=== PATIENT | male | born 1980 | race Two or more races ===

== ENCOUNTER 2019-02-26 14:32 | Emergency (ER) | payer OTHER ==
[~2019-02-26] VITALS: Ht 177.8 cm; Wt 74.8 kg
[2019-02-26 16:02] LABS: Basophils # (auto) 0.1 uL; Basophils % (auto) 1.1 % (0.0-2.0); Eosinophils # (auto) 0 uL; Hemoglobin 14.9 g/dL (13.5-17.5); Lymphocytes # (auto) 0.8 uL; Monocytes # (auto) 0.5 uL
[2019-02-26 16:07] LABS: Eosinophils % (auto) 0.1 % (0.0-7.0); Hematocrit 42.9 % (41.0-53.0); Lymphocytes % (auto) 9.8 % (10.0-50.0); Mean Corpuscular Hgb Conc. 34.9 g/dL (32.0-36.0); Mean Corpuscular Volume 100.5 fL (80.0-100.0); Monocytes % (auto) 6.1 % (0.0-12.0); Neutrophils # (auto) 6.9 uL; Neutrophils % (auto) 82.9 % (37.0-80.0); Nucleated Red Blood Cells % 0.2 %; Platelet Count (auto) 78 10^3/uL (140-450); Red Blood Cells 4.27 10^6/uL (4.5-5.90); Red Cell Distribution Width 16.3 % (11.8-14.3); White Blood Cell 8.3 10^3/uL (4.4-10.8)
[2019-02-26 16:09] LABS: Albumin 3.9 g/dL (3.4-5.0); Calcium 8.5 mg/dL (8.5-10.1); Potassium 3.9 mmol/L (3.5-5.1)
[2019-02-26 16:13] LABS: BUN/Creatinine Ratio 5.6; Bilirubin, Total 2.8 mg/dL (0.2-1.0); Total Protein 8.5 g/dL (6.4-8.2)
[2019-02-26 16:14] LABS: Amphetamine Screen, Urine NEGATIVE (NEGATIVE); Barbiturate Scree,Urine NEGATIVE (NEGATIVE); Benzodiazephine Screen, Urine NEGATIVE (NEGATIVE); Cannabinoid Screen, Urine POSITIVE (NEGATIVE); Cocaine Screen, Urine NEGATIVE (NEGATIVE); Opiate Scree,Urine NEGATIVE (NEGATIVE); Phencyclidine Screen, Urine NEGATIVE (NEGATIVE)
[2019-02-26] MEDS ORDERED: SODIUM CHLORIDE 0.9% 1,000 ML IV ONE ×2 (19:00)
[2019-02-26] MEDS ORDERED: THIAMINE INJ 100 MG in SODIUM CHLORIDE 0.9% 1,000 ML IV ONE (19:00)
[2019-02-26 19:03] LABS: Urine WBC None Seen /hpf (0 - 3)
[2019-02-26 19:23] LABS: Urine Bacteria NONE SEEN /hpf (None Seen); Urine Blood Negative /uL (Negative); Urine Mucus FEW (None Seen); Urine Specific Gravity 1.019 (1.001-1.035)
[2019-02-26] MEDS ORDERED: LORazepam 2MG/ML-1ML VIAL IV ONE (19:45)
[2019-02-26 19:52] LABS: Magnesium 1.6 mg/dL (1.6-2.6)
[2019-02-26 20:07] LABS: Acetaminophen < 2.0 ug/mL (10-30); Salicylate < 0.2 mg/dL (2.8-20.0)
[2019-02-26] MEDS ORDERED: THIAMINE 100mg/ml INJ (200mg/2ml VIAL) ONE (20:14)
[2019-02-26 20:41] VITALS: BP 109/59
[2019-02-26] MEDS ORDERED: ALPRAZolam 0.5 MG TAB PO ONE (21:00)
== END 2019-02-26 21:33 | disposition home or self-care (01) ==
LOC: ER 14:35
DX: F10.231 Alcohol dependence with withdrawal delirium (principal); Y90.9 Presence of alcohol in blood, level not specified; K70.30 Alcoholic cirrhosis of liver without ascites; F32.9 Major depressive disorder, single episode, unspecified; F12.10 Cannabis abuse, uncomplicated
CPT/HCPCS: 36415; 80053; 80307; 80320; 80329; 81001; 83735; 85025; 96365; 96375; 99284; J2060; J3411; J7030

== ENCOUNTER 2019-03-29 14:38 | Emergency (ER) | payer OTHER ==
[~2019-03-29] VITALS: Ht 175.3 cm; Wt 65.8 kg
[2019-03-29 15:28] LABS: Albumin 3.6 g/dL (3.4-5.0); Anion Gap 7 (5-15); Blood Urea Nitrogen 12 mg/dL (7-18); Calcium 8.6 mg/dL (8.5-10.1); Carbon Dioxide 27 mmol/L (21-32); Chloride 105 mmol/L (98-107); Glucose 87 mg/dL (74-106); Potassium 3.9 mmol/L (3.5-5.1); Sodium 139 mmol/L (136-145)
[2019-03-29 15:30] LABS: Basophils # (auto) 0.1 uL; Eosinophils # (auto) 0.1 uL; Lymphocytes # (auto) 1.2 uL; Monocytes # (auto) 0.6 uL; Red Blood Cells 3.74 10^6/uL (4.5-5.90); Red Cell Distribution Width 15.3 % (11.8-14.3); White Blood Cell 6.8 10^3/uL (4.4-10.8)
[2019-03-29 15:32] LABS: Basophils % (auto) 1.3 % (0.0-2.0); Hematocrit 36.7 % (41.0-53.0); Hemoglobin 12.7 g/dL (13.5-17.5); Lymphocytes % (auto) 18.4 % (10.0-50.0); Mean Corpuscular Hgb Conc. 34.7 g/dL (32.0-36.0); Mean Corpuscular Volume 98.2 fL (80.0-100.0); Monocytes % (auto) 9.2 % (0.0-12.0); Neutrophils # (auto) 4.7 uL; Neutrophils % (auto) 69.1 % (37.0-80.0); Nucleated Red Blood Cells % 0.2 %; Platelet Count (auto) 80 10^3/uL (140-450)
[2019-03-29 15:34] LABS: Alanine Aminotransferase 34 U/L (16-61); Alkaline Phosphatase 169 U/L (45-117); Aspartate Aminotransferase 44 U/L (15-37); Bilirubin, Total 1.8 mg/dL (0.2-1.0); GFR African American 139 mL/min; GFR Non-African American 115 mL/min
[2019-03-29 18:34] VITALS: BP 122/73
== END 2019-03-29 19:25 | disposition home or self-care (01) ==
LOC: ER 14:41
DX: D69.6 Thrombocytopenia, unspecified (principal); R16.1 Splenomegaly, not elsewhere classified; K76.9 Liver disease, unspecified; R79.89 Other specified abnormal findings of blood chemistry
CPT/HCPCS: 36415; 74176; 80053; 84484; 85025

== ENCOUNTER 2019-06-01 07:20 | Emergency (ER) | payer OTHER ==
[~2019-06-01] VITALS: Ht 175.3 cm; Wt 74.8 kg
[2019-06-01 07:34] VITALS: BP 121/77
[2019-06-01] MEDS ORDERED: cefTRIAXone SOD 1,000 MG VL IM ONE (08:15)
== END 2019-06-01 09:15 | disposition home or self-care (01) ==
LOC: ER 07:20
DX: J03.90 Acute tonsillitis, unspecified (principal); R51 Headache
CPT/HCPCS: 70450; 96372; 99284; J0696

== ENCOUNTER 2019-09-12 01:52 | Inpatient (IN) | payer OTHER ==
[~2019-09-12] VITALS: Ht 177.8 cm; Wt 82.9 kg
[2019-09-12 03:04] LABS: Basophils # (auto) 0.1 10 ^3/uL (0-0.2); Eosinophils # (auto) 0.1 10 ^3/uL (0-0.8); Eosinophils % (auto) 0.6 % (0.0-7.0); Hematocrit 35.7 % (41.0-53.0); Lymphocytes # (auto) 2.5 10 ^3/uL (0.4-5.4); Lymphocytes % (auto) 27.2 % (10.0-50.0); Mean Corpuscular Hemoglobin 29.2 pg (28.0-32.0); Mean Corpuscular Hgb Conc. 33.6 g/dL (32.0-36.0); Mean Corpuscular Volume 87.1 fL (80.0-100.0); Monocytes # (auto) 0.9 10 ^3/uL (0-1.3); Neutrophils # (auto) 5.6 10 ^3/uL (1.6-8.6); Neutrophils % (auto) 61.2 % (37.0-80.0); Platelet Count (auto) 122 10^3/uL (140-450); White Blood Cell 9.1 10^3/uL (4.4-10.8)
[2019-09-12 03:06] LABS: Red Cell Distribution Width 22.1 % (11.8-14.3)
[2019-09-12 03:11] LABS: INR 1.58 (0.9-1.15); Partial Thromboplastin Time 31.8 sec (23.64-32.05)
[2019-09-12 03:14] LABS: Albumin 3.8 g/dL (3.4-5.0); Calcium 8.9 mg/dL (8.5-10.1); Potassium 3.7 mmol/L (3.5-5.1)
[2019-09-12 03:17] LABS: BUN/Creatinine Ratio 12.1; Bilirubin, Total 2.3 mg/dL (0.2-1.0); Total Protein 8.2 g/dL (6.4-8.2)
[2019-09-12] MEDS ORDERED: THIAMINE 100mg/ml INJ (200mg/2ml VIAL) IV ONE (04:15)
[2019-09-12] MEDS ORDERED: LORazepam 2MG/ML-1ML VIAL IV ONE (04:15)
[2019-09-12] MEDS ORDERED: SODIUM CHLORIDE 0.9% 1,000 ML IV ONE (04:15)
[2019-09-12] MEDS ORDERED: PHYTONADIONE (VIT K)10 MG/ML 1ML VIAL SUBCUT ONE (04:30)
[2019-09-12] MEDS ORDERED: PANTOPRAZOLE 40 MG/10 ML VIAL INJ IV ONE (04:30)
[2019-09-12] MEDS ORDERED: ONDANSETRON HCL 4 MG/2 ML VIAL IV ONE (05:30)
[2019-09-12] MEDS ORDERED: PANTOPRAZOLE 40mg/50ML NS AE 50 ML IV SCH (07:00)
[2019-09-12] MEDS ORDERED: MORPHINE SULF INJ 2 MG/ML SYRINGE 1ML IV PRN (07:00)
[2019-09-12] MEDS ORDERED: NITROGLYCERIN 0.4 MG SL TAB SL PRN (07:00)
[2019-09-12 07:12] LABS: Hematocrit 31.7 % (41.0-53.0); Hemoglobin 10.7 g/dL (13.5-17.5)
[2019-09-12] MEDS: ONDANSETRON HCL 4 MG/2 ML VIAL IV PRN ×2 (08:12→18:45)
[2019-09-12 09:25] VITALS: BP 120/63
[2019-09-12] MEDS ORDERED: fentaNYL CITRATE 100 MCG/2 ML VL ONE (11:08)
[2019-09-12] MEDS ORDERED: GLYCOPYRROLATE 0.2 MG/ML 1ML VIAL ONE (11:09)
[2019-09-12] MEDS ORDERED: PROPOFOL 10 MG/ML 20 ML IV ONE (11:09)
[2019-09-12] MEDS ORDERED: ONDANSETRON HCL 4 MG/2 ML VIAL ONE (11:09)
[2019-09-12] MEDS ORDERED: MIDAZOLAM HCL 1MG/1ML-2 ML VIAL ONE (11:09)
[2019-09-12 11:26] LABS: Hematocrit 32.7 % (41.0-53.0); Hemoglobin 10.9 g/dL (13.5-17.5); Mean Corpuscular Hemoglobin 29.4 pg (28.0-32.0); Mean Corpuscular Hgb Conc. 33.4 g/dL (32.0-36.0); Mean Corpuscular Volume 88.2 fL (80.0-100.0); Red Blood Cells 3.71 10^6/uL (4.5-5.90); White Blood Cell 6.5 10^3/uL (4.4-10.8)
[2019-09-12 11:40] LABS: Albumin 3.2 g/dL (3.4-5.0); Calcium 8.5 mg/dL (8.5-10.1); Potassium 3.8 mmol/L (3.5-5.1)
[2019-09-12 11:44] LABS: BUN/Creatinine Ratio 20.6; Bilirubin, Total 3.4 mg/dL (0.2-1.0); Total Protein 7.3 g/dL (6.4-8.2)
[2019-09-12 12:00] VITALS: BP 118/71
[2019-09-12] MEDS ORDERED: ONDANSETRON HCL 4 MG/2 ML VIAL IV PRN (12:15)
[2019-09-12] MEDS ORDERED: HYDROmorphone HCL 2 MG/ML VL IV PRN (12:15)
[2019-09-12] MEDS: OCTREOTIDE ACETATE 500 MCG in SODIUM CHL 0.9% 99 ML IV SCH ×2 (13:22→21:21)
[2019-09-12] MEDS: FOLIC ACID 1 MG, MULTIPLE VITAMIN 10 ML, MAGNESIUM SULF SDV 50% 8 MEQ, THIAMINE INJ 100... INJ SCH ×5 (13:22)
[2019-09-12 17:00] VITALS: BP 137/71
[2019-09-12 17:34] LABS: Hematocrit 32.7 % (41.0-53.0); Hemoglobin 10.8 g/dL (13.5-17.5); Mean Corpuscular Hemoglobin 29.4 pg (28.0-32.0); Mean Corpuscular Hgb Conc. 33.1 g/dL (32.0-36.0); Mean Corpuscular Volume 88.8 fL (80.0-100.0); Red Blood Cells 3.68 10^6/uL (4.5-5.90); White Blood Cell 4.5 10^3/uL (4.4-10.8)
[2019-09-12 17:41] LABS: Red Cell Distribution Width 21.9 % (11.8-14.3)
[2019-09-12] MEDS: HYDROcodone-ACET 5/325MG TAB PO PRN (20:08)
[2019-09-12 21:00] VITALS: BP 136/93
[2019-09-12] MEDS: cefTRIAXone 1GM/50ML D5W 50 ML IV SCH (21:21)
[2019-09-12] MEDS: LORazepam 2MG/ML-1ML VIAL IV PRN (21:21)
[2019-09-12 22:50] LABS: Hematocrit 32.3 % (41.0-53.0); Hemoglobin 10.8 g/dL (13.5-17.5); Mean Corpuscular Hemoglobin 29.6 pg (28.0-32.0); Mean Corpuscular Hgb Conc. 33.5 g/dL (32.0-36.0); Mean Corpuscular Volume 88.5 fL (80.0-100.0); Red Blood Cells 3.65 10^6/uL (4.5-5.90); White Blood Cell 4.4 10^3/uL (4.4-10.8)
[2019-09-12 22:59] LABS: Red Cell Distribution Width 21.3 % (11.8-14.3)
[2019-09-13] MEDS: HYDROcodone-ACET 5/325MG TAB PO PRN (04:08)
[2019-09-13 05:00] VITALS: BP 136/88
[2019-09-13 05:38] LABS: Basophils # (auto) 0 10 ^3/uL (0-0.2); Monocytes # (auto) 0.4 10 ^3/uL (0-1.3); Nucleated Red Blood Cells % 0.1 %; Platelet Count (auto) 64 10^3/uL (140-450); White Blood Cell 3.8 10^3/uL (4.4-10.8)
[2019-09-13 05:40] LABS: Eosinophils # (auto) 0.1 10 ^3/uL (0-0.8); Eosinophils % (auto) 3.9 % (0.0-7.0); Hemoglobin 10.9 g/dL (13.5-17.5); Lymphocytes # (auto) 1.2 10 ^3/uL (0.4-5.4); Lymphocytes % (auto) 32.6 % (10.0-50.0); Mean Corpuscular Hemoglobin 30.1 pg (28.0-32.0); Mean Corpuscular Hgb Conc. 34.2 g/dL (32.0-36.0); Mean Corpuscular Volume 87.9 fL (80.0-100.0); Monocytes % (auto) 11.1 % (0.0-12.0); Neutrophils % (auto) 51.4 % (37.0-80.0); Red Blood Cells 3.64 10^6/uL (4.5-5.90)
[2019-09-13] MEDS: LORazepam 2MG/ML-1ML VIAL IV PRN ×2 (05:41→14:40)
[2019-09-13 05:53] LABS: Red Cell Distribution Width 21.3 % (11.8-14.3)
[2019-09-13 06:00] LABS: Potassium 3.9 mmol/L (3.5-5.1)
[2019-09-13 06:07] LABS: Albumin 3.3 g/dL (3.4-5.0); BUN/Creatinine Ratio 9.2; Bilirubin, Total 4.9 mg/dL (0.2-1.0); Calcium 8.2 mg/dL (8.5-10.1); Total Protein 7.4 g/dL (6.4-8.2)
[2019-09-13] MEDS: OCTREOTIDE ACETATE 500 MCG in SODIUM CHL 0.9% 99 ML IV SCH ×2 (06:49→16:45)
[2019-09-13 08:00] VITALS: BP 121/71
[2019-09-13] MEDS: cefTRIAXone 1GM/50ML D5W 50 ML IV SCH (10:00)
[2019-09-13] MEDS ORDERED: PANTOPRAZOLE 40 MG/10 ML VIAL INJ IV SCH (10:00)
[2019-09-13 10:39] VITALS: BP 121/71
[2019-09-13 12:00] VITALS: BP 133/81
[2019-09-13] MEDS: FOLIC ACID 1 MG, MULTIPLE VITAMIN 10 ML, MAGNESIUM SULF SDV 50% 8 MEQ, THIAMINE INJ 100... INJ SCH ×5 (12:00)
[2019-09-13 15:30] VITALS: BP 121/71
[2019-09-13 16:30] VITALS: BP 116/76
== END 2019-09-13 18:20 | disposition home health service (06) | DRG 432 ==
LOC: ER 01:52 → TELE 01:53 → TELE-EAST 08:50
PROVIDERS: ADMIT Nurse Practitioner; ATTEND Hospitalist
PROC: 06L38CZ Occlusion of Esophageal Vein with Extraluminal Device, Via Natural or Artificial Opening Endoscopic (ICD-10-PCS; principal; 2019-09-12 11:45)
DX: K70.30 Alcoholic cirrhosis of liver without ascites (principal); I85.11 Secondary esophageal varices with bleeding; K76.6 Portal hypertension; D69.6 Thrombocytopenia, unspecified; K31.89 Other diseases of stomach and duodenum; F12.90 Cannabis use, unspecified, uncomplicated; D64.9 Anemia, unspecified; F10.10 Alcohol abuse, uncomplicated
CPT/HCPCS: 36415; 43244; 74176; 80053; 82150; 83690; 85014; 85018; 85025; 85027; 85610; 85730; 86850; 86900; 86901; 86920; 93005; 96365; 96372; 96375; C9113; G0378; J0696; J2250; J2405; J2704; J3430

== ENCOUNTER 2020-03-03 21:26 | Inpatient (IN) | payer OTHER ==
[~2020-03-03] VITALS: Ht 177.8 cm; Wt 76.8 kg
[2020-03-03] MEDS ORDERED: PANTOPRAZOLE 40 MG/10 ML VIAL INJ IV ONE (22:45)
[2020-03-03] MEDS ORDERED: SODIUM CHLORIDE 0.9% 1,000 ML IV ONE (22:45)
[2020-03-03] MEDS ORDERED: PANTOPRAZOLE 40mg/50ML NS AE 50 ML IV ONE (22:45)
[2020-03-03 23:10] LABS: Basophils # (auto) 0.1 10 ^3/uL (0-0.2); Basophils % (auto) 0.7 % (0.0-2.0); Eosinophils # (auto) 0 10 ^3/uL (0-0.8); Eosinophils % (auto) 0.4 % (0.0-7.0); Hematocrit 42.4 % (41.0-53.0); Hemoglobin 14.3 g/dL (13.5-17.5); Lymphocytes # (auto) 1.2 10 ^3/uL (0.4-5.4); Lymphocytes % (auto) 10.2 % (10.0-50.0); Mean Corpuscular Hgb Conc. 33.8 g/dL (32.0-36.0); Mean Corpuscular Volume 94.8 fL (80.0-100.0); Monocytes # (auto) 0.7 10 ^3/uL (0-1.3); Monocytes % (auto) 6.3 % (0.0-12.0); Neutrophils # (auto) 9.8 10 ^3/uL (1.6-8.6); Neutrophils % (auto) 82.4 % (37.0-80.0); Platelet Count (auto) 108 10^3/uL (140-450); Red Blood Cells 4.47 10^6/uL (4.5-5.90); Red Cell Distribution Width 17.7 % (11.8-14.3); White Blood Cell 11.9 10^3/uL (4.4-10.8)
[2020-03-03 23:27] LABS: INR 1.34 (0.9-1.15); Partial Thromboplastin Time 27.6 sec (23.0-31.2)
[2020-03-03 23:32] LABS: Albumin 3.9 g/dL (3.4-5.0); Anion Gap 11 (5-15); Blood Urea Nitrogen 24 mg/dL (7-18); Calcium 8.6 mg/dL (8.5-10.1); Carbon Dioxide 22 mmol/L (21-32); Chloride 104 mmol/L (98-107); Glucose 118 mg/dL (74-106); Potassium 3.7 mmol/L (3.5-5.1); Sodium 137 mmol/L (136-145)
[2020-03-03 23:38] LABS: Alanine Aminotransferase 49 U/L (16-61); Alkaline Phosphatase 172 U/L (45-117); Aspartate Aminotransferase 60 U/L (15-37); Bilirubin, Total 2.7 mg/dL (0.2-1.0); GFR African American 149 mL/min; GFR Non-African American 123 mL/min; Total Protein 8.3 g/dL (6.4-8.2)
[2020-03-04] MEDS ORDERED: NITROGLYCERIN 0.4 MG SL TAB SL PRN (01:00)
[2020-03-04] MEDS ORDERED: SOD CHL 0.45% 1,000 ML IV ONE (01:00)
[2020-03-04] MEDS ORDERED: MORPHINE SULF INJ 2 MG/ML SYRINGE 1ML IV PRN ×2 (01:00)
[2020-03-04] MEDS ORDERED: LORazepam 2MG/ML-1ML VIAL IV PRN (01:00)
[2020-03-04] MEDS: ONDANSETRON HCL 4 MG/2 ML VIAL IV PRN (02:42)
[2020-03-04 05:06] LABS: Basophils # (auto) 0.1 10 ^3/uL (0-0.2); Basophils % (auto) 0.8 % (0.0-2.0); Eosinophils # (auto) 0 10 ^3/uL (0-0.8); Eosinophils % (auto) 0.4 % (0.0-7.0); Hematocrit 35.8 % (41.0-53.0); Lymphocytes # (auto) 1.6 10 ^3/uL (0.4-5.4); Lymphocytes % (auto) 20.3 % (10.0-50.0); Mean Corpuscular Hemoglobin 31.6 pg (28.0-32.0); Mean Corpuscular Hgb Conc. 33.4 g/dL (32.0-36.0); Mean Corpuscular Volume 94.6 fL (80.0-100.0); Monocytes # (auto) 0.8 10 ^3/uL (0-1.3); Monocytes % (auto) 9.9 % (0.0-12.0); Neutrophils # (auto) 5.4 10 ^3/uL (1.6-8.6); Neutrophils % (auto) 68.6 % (37.0-80.0); Nucleated Red Blood Cells % 0.1 %; Platelet Count (auto) 72 10^3/uL (140-450); Red Blood Cells 3.79 10^6/uL (4.5-5.90); White Blood Cell 7.9 10^3/uL (4.4-10.8)
[2020-03-04 05:25] LABS: Albumin 3.3 g/dL (3.4-5.0); Calcium 8.1 mg/dL (8.5-10.1); Potassium 3.8 mmol/L (3.5-5.1)
[2020-03-04 05:29] LABS: Bilirubin, Total 2.1 mg/dL (0.2-1.0); Total Protein 6.8 g/dL (6.4-8.2)
[2020-03-04] MEDS ORDERED: OCTREOTIDE ACETATE 100 MCG in SODIUM CHL 0.9% 50 ML IV ONE (08:45)
[2020-03-04] MEDS: PANTOPRAZOLE 40mg/50ML NS AE 50 ML IV SCH ×3 (09:05→18:53)
[2020-03-04] MEDS: OCTREOTIDE ACETATE 500 MCG in SODIUM CHL 0.9% 99 ML IV SCH ×2 (09:22→20:03)
[2020-03-04] MEDS: levoFLOXacin 500MG 100 ML IV SCH (09:27)
[2020-03-04] MEDS ORDERED: PANTOPRAZOLE 40 MG/10 ML VIAL INJ IV SCH (10:00)
[2020-03-04] MEDS ORDERED: SODIUM CHLORIDE LOCK 10 ML ONE (12:47)
[2020-03-04] MEDS ORDERED: diphenhdrAMINE HCL 50 MG/1 ML VL ONE (12:48)
[2020-03-04] MEDS ORDERED: LIDOCAINE VISCOUS 2% 15ML UD ONE (12:49)
[2020-03-04] MEDS: MIDAZOLAM HCL 5 MG/ML-1ML VIAL ONE ×3 (13:07→13:14)
[2020-03-04] MEDS: fentaNYL CITRATE 100 MCG/2 ML VL ONE ×3 (13:07→13:14)
[2020-03-04] MEDS: PROPRANOLOL HCL 20 MG TAB PO SCH ×2 (14:00→22:27)
[2020-03-04 16:24] VITALS: BP 119/80
[2020-03-04] MEDS ORDERED: ACAM1TAB4 PO (18:38)
[2020-03-04] MEDS ORDERED: LACT10SO60 PO (18:38)
[2020-03-04] MEDS ORDERED: PROP60CA34 PO (18:38)
[2020-03-04] MEDS ORDERED: GUAN1TAB PO (18:38)
[2020-03-04] MEDS ORDERED: OMEP20TA PO (18:38)
[2020-03-04 20:00] VITALS: BP 121/76
[2020-03-04 22:26] LABS: Hematocrit 32.7 % (41.0-53.0); Hemoglobin 11.2 g/dL (13.5-17.5)
[2020-03-05] MEDS: PANTOPRAZOLE 40mg/50ML NS AE 50 ML IV SCH ×5 (00:06→20:59)
[2020-03-05 00:30] VITALS: BP 121/76
[2020-03-05] MEDS: ONDANSETRON HCL 4 MG/2 ML VIAL IV PRN (00:38)
[2020-03-05 05:39] VITALS: BP 115/79
[2020-03-05] MEDS: PROPRANOLOL HCL 20 MG TAB PO SCH ×3 (06:50→21:37)
[2020-03-05 07:06] LABS: Basophils # (auto) 0 10 ^3/uL (0-0.2); Eosinophils # (auto) 0.1 10 ^3/uL (0-0.8); Eosinophils % (auto) 2.9 % (0.0-7.0); Hemoglobin 11.3 g/dL (13.5-17.5); Lymphocytes # (auto) 1.2 10 ^3/uL (0.4-5.4); Monocytes # (auto) 0.5 10 ^3/uL (0-1.3); White Blood Cell 4.6 10^3/uL (4.4-10.8)
[2020-03-05 07:09] LABS: Hematocrit 33.2 % (41.0-53.0); Lymphocytes % (auto) 25.6 % (10.0-50.0); Mean Corpuscular Hemoglobin 32.6 pg (28.0-32.0); Mean Corpuscular Hgb Conc. 33.9 g/dL (32.0-36.0); Mean Corpuscular Volume 96.4 fL (80.0-100.0); Monocytes % (auto) 10.5 % (0.0-12.0); Neutrophils # (auto) 2.8 10 ^3/uL (1.6-8.6); Platelet Count (auto) 63 10^3/uL (140-450); Red Blood Cells 3.45 10^6/uL (4.5-5.90); Red Cell Distribution Width 17.4 % (11.8-14.3)
[2020-03-05 07:35] LABS: Calcium 7.9 mg/dL (8.5-10.1); Potassium 3.9 mmol/L (3.5-5.1)
[2020-03-05 07:41] LABS: Albumin 3.1 g/dL (3.4-5.0); BUN/Creatinine Ratio 21.6; Total Protein 6.4 g/dL (6.4-8.2)
[2020-03-05 08:00] VITALS: BP_SYST 107; BP_SYST 121; BP_DIAS 65; BP_DIAS 76
[2020-03-05] MEDS: OCTREOTIDE ACETATE 500 MCG in SODIUM CHL 0.9% 99 ML IV SCH ×2 (08:20→19:24)
[2020-03-05] MEDS: levoFLOXacin 500MG 100 ML IV SCH (09:53)
[2020-03-05] MEDS: D5W/SOD CHL 0.45% 1,000 ML IV SCH ×2 (10:38→23:20)
[2020-03-05 12:00] VITALS: BP 115/73
[2020-03-05 12:15] LABS: Hematocrit 36.4 % (41.0-53.0); Hemoglobin 12.4 g/dL (13.5-17.5)
[2020-03-05 17:00] VITALS: BP 116/72
[2020-03-05 19:55] LABS: Hematocrit 35.5 % (41.0-53.0); Hemoglobin 11.8 g/dL (13.5-17.5)
[2020-03-05 22:00] VITALS: BP 114/74
[2020-03-06] MEDS: D5W/SOD CHL 0.45% 1,000 ML IV SCH (00:16)
[2020-03-06] MEDS: PANTOPRAZOLE 40mg/50ML NS AE 50 ML IV SCH ×2 (00:41→06:16)
[2020-03-06] MEDS: OCTREOTIDE ACETATE 500 MCG in SODIUM CHL 0.9% 99 ML IV SCH ×2 (00:45→03:32)
[2020-03-06 05:00] VITALS: BP 110/66
[2020-03-06] MEDS: PROPRANOLOL HCL 20 MG TAB PO SCH ×2 (05:38→14:00)
[2020-03-06 06:03] LABS: Eosinophils # (auto) 0.2 10 ^3/uL (0-0.8); Hemoglobin 11.6 g/dL (13.5-17.5); Lymphocytes # (auto) 1.3 10 ^3/uL (0.4-5.4); Nucleated Red Blood Cells % 0.1 %
[2020-03-06 06:06] LABS: Basophils # (auto) 0.1 10 ^3/uL (0-0.2); Basophils % (auto) 1.4 % (0.0-2.0); Eosinophils % (auto) 3.2 % (0.0-7.0); Hematocrit 34.2 % (41.0-53.0); Lymphocytes % (auto) 23.6 % (10.0-50.0); Mean Corpuscular Hemoglobin 32.6 pg (28.0-32.0); Mean Corpuscular Volume 95.8 fL (80.0-100.0); Monocytes # (auto) 0.7 10 ^3/uL (0-1.3); Neutrophils # (auto) 3.3 10 ^3/uL (1.6-8.6); Neutrophils % (auto) 59.8 % (37.0-80.0); Platelet Count (auto) 58 10^3/uL (140-450); Red Blood Cells 3.57 10^6/uL (4.5-5.90); Red Cell Distribution Width 16.5 % (11.8-14.3); White Blood Cell 5.5 10^3/uL (4.4-10.8)
[2020-03-06 06:23] LABS: Albumin 3.3 g/dL (3.4-5.0); BUN/Creatinine Ratio 14.3; Potassium 3.6 mmol/L (3.5-5.1)
[2020-03-06 06:26] LABS: Bilirubin, Total 2.6 mg/dL (0.2-1.0); Total Protein 6.6 g/dL (6.4-8.2)
[2020-03-06 09:00] VITALS: BP 107/68
[2020-03-06] MEDS ORDERED: PANTOPRAZOLE 40 MG TAB PO SCH (10:00)
[2020-03-06 13:00] VITALS: BP_SYST 123; BP_SYST 148; BP_DIAS 71; BP_DIAS 82
== END 2020-03-06 14:30 | disposition home or self-care (01) | DRG 432 ==
LOC: ER 21:27 → TELE 21:28 → TELE-WESTW 03-04 14:51
PROVIDERS: ADMIT Internal Medicine; ATTEND Internal Medicine
PROC: 06L38CZ Occlusion of Esophageal Vein with Extraluminal Device, Via Natural or Artificial Opening Endoscopic (ICD-10-PCS; principal; 2020-03-04 13:02)
DX: K70.30 Alcoholic cirrhosis of liver without ascites (principal); I85.11 Secondary esophageal varices with bleeding; Q39.4 Esophageal web; D62 Acute posthemorrhagic anemia; D68.9 Coagulation defect, unspecified; F41.9 Anxiety disorder, unspecified; F10.20 Alcohol dependence, uncomplicated
CPT/HCPCS: 36415; 43244; 74176; 80053; 80320; 82140; 83880; 84484; 85014; 85018; 85025; 85379; 85610; 85730; 86850; 86900; 86901; 96361; 96365; 96375; 99291; C9113; G0378; J1956; J2250; J2405

== ENCOUNTER 2021-11-17 15:31 | Inpatient (IN) | payer MEDICAID, OTHER ==
[~2021-11-17] VITALS: Ht 177.8 cm; Wt 81.5 kg
[~2021-11-17 15:31] MED LIST: ACAM1TAB4 PO; GUAN1TAB PO; LACT10SO60 PO; OMEP20TA PO; PROP60CA34 PO
[2021-11-17] MEDS ORDERED: PANTOPRAZOLE 40mg/50ML NS AE 50 ML IV ONE (16:30)
[2021-11-17 16:42] LABS: Mean Corpuscular Hemoglobin 22.1 pg (28.0-32.0); Mean Corpuscular Hgb Conc. 30.1 g/dL (32.0-36.0); Mean Corpuscular Volume 73.2 fL (80.0-100.0); Red Blood Cells 2.46 10^6/uL (4.5-5.90); White Blood Cell 5.5 10^3/uL (4.4-10.8)
[2021-11-17 16:49] LABS: Hemoglobin 5.4 g/dL (13.5-17.5)
[2021-11-17 16:50] LABS: Basophils % (manual) 0 (0.0-2.0); Blast Cells 0; Eosinophils % (manual) 0 (0-7); Metamyelocytes % 0; Myelocytes % 0; Promyelocytes % 0; Reactive Lymphocytes 0
[2021-11-17 17:04] LABS: Albumin 2.9 g/dL (3.4-5.0); BUN/Creatinine Ratio 34.4; Calcium 7.4 mg/dL (8.5-10.1); Potassium 4.4 mmol/L (3.5-5.1)
[2021-11-17 17:06] LABS: Bilirubin, Total 2.2 mg/dL (0.2-1.0); Total Protein 6.5 g/dL (6.4-8.2)
[2021-11-17 17:31] LABS: Band Neutrophils % (manual) 4; Lymphocytes % (manual) 20 (10.0-50.0); Monocytes % (manual) 9 (0-12)
[2021-11-17 17:47] LABS: INR 1.56 (0.9-1.15)
[2021-11-17] MEDS ORDERED: OCTREOTIDE ACETATE 100 MCG in SODIUM CHL 0.9% 50 ML IV ONE (18:00)
[2021-11-17] MEDS ORDERED: ONDANSETRON HCL 4 MG/2 ML VIAL IV PRN (18:00)
[2021-11-17] MEDS ORDERED: LORazepam 2MG/ML-1ML VIAL IV PRN (18:15)
[2021-11-17] MEDS ORDERED: cefTRIAXone 1GM/50ML D5W 50 ML IV ONE (18:15)
[2021-11-17 19:14] LABS: Amylase 89 U/L (25-115); Lipase 100 U/L (73-393)
[2021-11-17] MEDS: OCTREOTIDE ACETATE 500 MCG in SODIUM CHL 0.9% 99 ML IV SCH (19:24)
[2021-11-17 20:07] VITALS: BP 102/52
[2021-11-17 20:26] VITALS: BP 102/52
[2021-11-17] MEDS: metroNIDAZOLE 500MG/100ML 100 ML IV SCH (21:25)
[2021-11-17] MEDS: FOLIC ACID 1 MG, MULTIPLE VITAMIN 10 ML, THIAMINE INJ 100 MG in SODIUM CHLORIDE 0.9% 1,... INJ SCH (22:16)
[2021-11-17 22:28] VITALS: BP 111/59
[2021-11-17 22:49] VITALS: BP 104/53
[2021-11-17 23:14] VITALS: BP 105/57
[2021-11-18] VITALS (17 sets, daily range): BP systolic 105–121; BP diastolic 50–74
[2021-11-18] MEDS ORDERED: HYDROcodone-ACET 5/325MG TAB PO ONE (00:15)
[2021-11-18 01:17] LABS: Hematocrit 19.8 % (41.0-53.0)
[2021-11-18 01:30] LABS: Hemoglobin 6.2 g/dL (13.5-17.5)
[2021-11-18] MEDS: OCTREOTIDE ACETATE 500 MCG in SODIUM CHL 0.9% 99 ML IV SCH ×2 (02:23→14:00)
[2021-11-18 03:18] LABS: Urine Bacteria NONE SEEN /hpf (None Seen); Urine Blood Negative /uL (Negative); Urine Specific Gravity 1.022 (1.001-1.035); Urine WBC <1 /hpf (0 - 3)
[2021-11-18 03:28] LABS: Amphetamine Screen, Urine NEGATIVE (NEGATIVE); Barbiturate Scree,Urine NEGATIVE (NEGATIVE); Benzodiazephine Screen, Urine NEGATIVE (NEGATIVE); Cannabinoid Screen, Urine NEGATIVE (NEGATIVE); Cocaine Screen, Urine NEGATIVE (NEGATIVE); Opiate Scree,Urine NEGATIVE (NEGATIVE); Phencyclidine Screen, Urine NEGATIVE (NEGATIVE)
[2021-11-18] MEDS: metroNIDAZOLE 500MG/100ML 100 ML IV SCH ×3 (03:48→18:41)
[2021-11-18 06:33] LABS: Basophils # (auto) 0.1 10 ^3/uL (0-0.2); Eosinophils # (auto) 0.1 10 ^3/uL (0-0.8); Hematocrit 20.3 % (41.0-53.0); Lymphocytes # (auto) 0.7 10 ^3/uL (0.4-5.4); Mean Corpuscular Hgb Conc. 31.6 g/dL (32.0-36.0); White Blood Cell 4.1 10^3/uL (4.4-10.8)
[2021-11-18 06:37] LABS: Basophils % (auto) 1.9 % (0.0-2.0); Eosinophils % (auto) 1.7 % (0.0-7.0); Lymphocytes % (auto) 15.9 % (10.0-50.0); Mean Corpuscular Hemoglobin 24.1 pg (28.0-32.0); Mean Corpuscular Volume 76.4 fL (80.0-100.0); Monocytes # (auto) 0.6 10 ^3/uL (0-1.3); Monocytes % (auto) 15.4 % (0.0-12.0); Neutrophils # (auto) 2.7 10 ^3/uL (1.6-8.6); Neutrophils % (auto) 65.1 % (37.0-80.0); Nucleated Red Blood Cells % 0.2 %; Red Blood Cells 2.66 10^6/uL (4.5-5.90); Red Cell Distribution Width 20.6 % (11.8-14.3)
[2021-11-18 06:47] LABS: Albumin 2.4 g/dL (3.4-5.0); Calcium 7.1 mg/dL (8.5-10.1); Potassium 4.2 mmol/L (3.5-5.1)
[2021-11-18 06:52] LABS: BUN/Creatinine Ratio 28.1; Total Protein 5.5 g/dL (6.4-8.2)
[2021-11-18 06:53] LABS: Hemoglobin 6.4 g/dL (13.5-17.5)
[2021-11-18] MEDS: cefTRIAXone 1GM/50ML D5W 50 ML IV SCH (09:06)
[2021-11-18] MEDS ORDERED: LACTULOSE 20Gm/30ML SOLN PO ONE (10:00)
[2021-11-18] MEDS ORDERED: diphenhdrAMINE HCL 50 MG/1 ML VL ONE (10:27)
[2021-11-18] MEDS ORDERED: LIDOCAINE VISCOUS 2% 15ML UD ONE ×2 (10:27→17:42)
[2021-11-18] MEDS ORDERED: SODIUM CHLORIDE LOCK 10 ML ONE (10:27)
[2021-11-18] MEDS ORDERED: fentaNYL CITRATE 100 MCG/2 ML VL ONE ×2 (10:27→17:38)
[2021-11-18] MEDS ORDERED: MIDAZOLAM HCL 5 MG/ML-1ML VIAL ONE ×2 (10:27→17:37)
[2021-11-18 12:04] LABS: Hematocrit 22.5 % (41.0-53.0)
[2021-11-18] MEDS: FOLIC ACID 1 MG, MULTIPLE VITAMIN 10 ML, THIAMINE INJ 100 MG in SODIUM CHLORIDE 0.9% 1,... INJ SCH (12:35)
[2021-11-18] MEDS: diphenhdrAMINE HCL 50 MG/1 ML VL ONE ×2 (17:52→17:54)
[2021-11-18 19:49] LABS: Hemoglobin 8.1 g/dL (13.5-17.5)
[2021-11-18] MEDS: LACTULOSE 20Gm/30ML SOLN PO SCH (22:54)
[2021-11-18] MEDS: SUCRALFATE 1 GM/10 ML ORAL SUSP PO SCH (22:54)
[2021-11-19] MEDS: OCTREOTIDE ACETATE 500 MCG in SODIUM CHL 0.9% 99 ML IV SCH (00:29)
[2021-11-19] MEDS: metroNIDAZOLE 500MG/100ML 100 ML IV SCH ×3 (02:47→18:24)
[2021-11-19 05:00] VITALS: BP 109/71
[2021-11-19 05:24] LABS: Basophils # (auto) 0.1 10 ^3/uL (0-0.2); Basophils % (auto) 1.4 % (0.0-2.0); Eosinophils # (auto) 0.2 10 ^3/uL (0-0.8); Eosinophils % (auto) 3.3 % (0.0-7.0); Hematocrit 25.6 % (41.0-53.0); Hemoglobin 8.2 g/dL (13.5-17.5); Lymphocytes # (auto) 0.6 10 ^3/uL (0.4-5.4); Lymphocytes % (auto) 12.1 % (10.0-50.0); Mean Corpuscular Hemoglobin 24.5 pg (28.0-32.0); Mean Corpuscular Hgb Conc. 31.9 g/dL (32.0-36.0); Mean Corpuscular Volume 77.1 fL (80.0-100.0); Monocytes # (auto) 0.6 10 ^3/uL (0-1.3); Monocytes % (auto) 12.1 % (0.0-12.0); Neutrophils # (auto) 3.3 10 ^3/uL (1.6-8.6); Neutrophils % (auto) 71.1 % (37.0-80.0); Nucleated Red Blood Cells % 0.2 %; Red Blood Cells 3.32 10^6/uL (4.5-5.90); White Blood Cell 4.6 10^3/uL (4.4-10.8)
[2021-11-19 05:25] LABS: Red Cell Distribution Width 20.2 % (11.8-14.3)
[2021-11-19 05:44] LABS: Albumin 2.6 g/dL (3.4-5.0); Calcium 7.2 mg/dL (8.5-10.1); Potassium 3.8 mmol/L (3.5-5.1)
[2021-11-19 05:48] LABS: BUN/Creatinine Ratio 20.6; Bilirubin, Total 4.2 mg/dL (0.2-1.0); Total Protein 5.9 g/dL (6.4-8.2)
[2021-11-19] MEDS: SUCRALFATE 1 GM/10 ML ORAL SUSP PO SCH (06:34)
[2021-11-19 08:00] VITALS: BP 104/66
[2021-11-19 09:00] VITALS: BP 104/66
[2021-11-19] MEDS: cefTRIAXone 1GM/50ML D5W 50 ML IV SCH (09:15)
[2021-11-19] MEDS: LACTULOSE 20Gm/30ML SOLN PO SCH ×2 (09:42→23:16)
[2021-11-19] MEDS ORDERED: THIAMINE HCL 100 MG TAB PO ONE (10:15)
[2021-11-19] MEDS ORDERED: PROPRANOLOL HCL 20 MG TAB PO ONE (10:30)
[2021-11-19] MEDS ORDERED: FUROSEMIDE 20 MG TAB PO ONE (10:30)
[2021-11-19] MEDS ORDERED: SPIRONOLACTONE 25 MG TAB PO ONE (10:30)
[2021-11-19] MEDS: PANTOPRAZOLE 40 MG/10 ML VIAL INJ IV SCH ×2 (11:59→23:16)
[2021-11-19] MEDS: SUCRALFATE 1 GM TAB PO SCH ×3 (12:01→23:17)
[2021-11-19 13:00] VITALS: BP 107/66
[2021-11-19 16:42] VITALS: BP 104/67
[2021-11-19 22:00] VITALS: BP 116/72
[2021-11-19] MEDS ORDERED: PROPRANOLOL HCL 20 MG TAB PO SCH (22:00)
[2021-11-20] MEDS: metroNIDAZOLE 500MG/100ML 100 ML IV SCH ×2 (03:27→11:30)
[2021-11-20 05:00] VITALS: BP 100/57
[2021-11-20 05:52] LABS: Hematocrit 23.9 % (41.0-53.0); Hemoglobin 7.9 g/dL (13.5-17.5)
[2021-11-20] MEDS: SUCRALFATE 1 GM TAB PO SCH ×2 (06:47→11:29)
[2021-11-20 08:45] VITALS: BP 111/70
[2021-11-20] MEDS: LACTULOSE 20Gm/30ML SOLN PO SCH (09:34)
[2021-11-20] MEDS: PANTOPRAZOLE 40 MG/10 ML VIAL INJ IV SCH (09:43)
[2021-11-20] MEDS: cefTRIAXone 1GM/50ML D5W 50 ML IV SCH (09:44)
[2021-11-20] MEDS ORDERED: SPIRONOLACTONE 25 MG TAB PO SCH (10:00)
[2021-11-20] MEDS ORDERED: THIAMINE HCL 100 MG TAB PO SCH (10:00)
[2021-11-20] MEDS ORDERED: FUROSEMIDE 20 MG TAB PO SCH (10:00)
[2021-11-20 12:29] VITALS: BP 108/63
[2021-11-20] MEDS ORDERED: PROP20TA73 PO (13:25)
[2021-11-20] MEDS ORDERED: THIA100T10 PO (13:25)
[2021-11-20] MEDS ORDERED: FUR20T PO (13:25)
[2021-11-20] MEDS ORDERED: SPIR25TA PO (13:25)
[2021-11-20] MEDS ORDERED: PANT40TA2 PO (13:28)
[2021-11-20] MEDS ORDERED: SUCR1TAB22 OR (13:29)
[2021-11-20 17:05] VITALS: BP 111/70
== END 2021-11-20 18:40 | disposition home or self-care (01) | DRG 280 ==
LOC: ER 15:31 → OVERFLOW 17:55 → WEST WING 23:49
PROVIDERS: ADMIT Registered Nurse; ATTEND Internal Medicine Nephrology
PROC: 30233N1 Transfusion of Nonautologous Red Blood Cells into Peripheral Vein, Percutaneous Approach (ICD-10-PCS; 2021-11-17)
PROC: 0DB68ZX Excision of Stomach, Via Natural or Artificial Opening Endoscopic, Diagnostic (ICD-10-PCS; 2021-11-18)
PROC: 30233R1 Transfusion of Nonautologous Platelets into Peripheral Vein, Percutaneous Approach (ICD-10-PCS; 2021-11-18)
PROC: 0DB98ZX Excision of Duodenum, Via Natural or Artificial Opening Endoscopic, Diagnostic (ICD-10-PCS; principal; 2021-11-18 18:00)
DX: K70.30 Alcoholic cirrhosis of liver without ascites (principal); I85.11 Secondary esophageal varices with bleeding; D61.818 Other pancytopenia; K76.6 Portal hypertension; K29.91 Gastroduodenitis, unspecified, with bleeding; E11.9 Type 2 diabetes mellitus without complications; F10.20 Alcohol dependence, uncomplicated; R16.1 Splenomegaly, not elsewhere classified; K31.9 Disease of stomach and duodenum, unspecified; F41.9 Anxiety disorder, unspecified; Z20.822 Contact with and (suspected) exposure to COVID-19
CPT/HCPCS: 36415; 74176; 80053; 80061; 80307; 80320; 81001; 82140; 82150; 83036; 83690; 85007; 85014; 85018; 85025; 85027; 85610; 86850; 86900; 86901; 86920; 99291; C9113; G0378; J0696; J2250; J3490